=== PATIENT | female | born 2000 | race Caucasian/White ===

== ENCOUNTER 2020-09-07 12:25 | Day surgery (SDC) | payer BC ==
[2020-09-07] MEDS ORDERED: Ketorolac 30 MG/ML SDV IVPUSH ONE (13:11)
[2020-09-07] MEDS ORDERED: Sodium Chloride 0.9% 1,000 ML IV ONE (13:11)
[2020-09-07] MEDS ORDERED: Ondansetron 4 MG/2 ML SDV IVPUSH ONE (13:11)
[2020-09-07] MEDS ORDERED: cefTRIAXone 1 GM in Premix Bag 1 BAG IV ONE (13:12)
[2020-09-07 13:56] LABS: BLOOD UREA NITROGEN,BUN 12 mg/dL (7.0-18.0); CARBON DIOXIDE,CO2 23.6 mmol/L (21.0-32.0); CHLORIDE,CL 101 mmol/L (98-107); GLUCOSE RANDOM 96 mg/dL (74-106); LIPASE 37 U/L (73-393); POTASSIUM,K 3.4 mmol/L (3.5-5.1); SODIUM,NA 135 mmol/L (136-145)
--- NOTE | 2020-09-07 15:06 | CT ---
INDICATION: Right flank pain of 3 days duration. COMPARISON: None available. FINDINGS: Imaged lower chest unremarkable. - The unenhanced liver, gallbladder, pancreas, spleen, and adrenals are unremarkable. - Mild asymmetric right renal enlargement. Staghorn calculus measuring up to 2.1 cm at the right ureteropelvic junction (series 201, image 52). Mild-moderate dilatation of the right intrarenal collecting systems. Additional 0.5 cm calculus at the right ureterovesical junction (series 201, image 21) with mild upstream hydroureter. No left-sided urolithiasis or hydronephrosis. Urinary bladder is otherwise unremarkable. Anteverted uterus. Small right adnexal cystic lesion, likely physiologic. - The bowel appears normal in caliber and thickness diffusely. Candidate appendix appears normal. No free air. Trace pelvic free fluid. No lymphadenopathy. - Normal caliber abdominal aorta. No suspicious osseous lesion. IMPRESSION: 1. Staghorn 2.1 cm calculus at the right ureteropelvic junction with associated mild-moderate hydronephrosis. 2. Right ureterovesical junction 0.5 cm calculus with mild upstream hydroureter. Dictated by Flakito Blankenship MD @ 09/07/2020 3:03:41 PM Please note that all CT scans at this facility use dose modulation, iterative reconstruction, and/or weight-based dosing when appropriate to reduce radiation dose to as low as reasonably achievable. Dictated by: Flakito Blankenship MD @ 09/07/2020 15:03:50 (Electronically Signed)
[2020-09-07] MEDS ORDERED: Acetaminophen 1,000 MG in Premix Bag 1 BAG IV PRN (16:23)
[2020-09-07] MEDS ORDERED: fentaNYL 100 MCG/2 ML SDV IVPUSH PRN (16:23)
--- NOTE | 2020-09-07 16:23 | PCM.PREANE ---
Preanesthetic Assessment - Anesthesia/Transfusion/Family Hx Anesthesia History: No Prior Anesthesia Family History of Anesthesia Reaction: No - Physical Assessment NPO Status Date: 09/07/20 NPO Status Time: 00:05 Vital Signs: Last Vital Signs Temp 37.0 C 09/07/20 13:43 Pulse 108 H 09/07/20 13:43 Resp 17 09/07/20 13:43 BP 126/62 09/07/20 13:43 Pulse Ox 98 09/07/20 13:43 Height: 1.68 m Weight: 58.967 kg ASA Class: 1E - Lab Values: Laboratory Last Values WBC 14.08 K/uL (4.0-11.0) H 09/07/20 13:26 RBC 4.56 M/uL (4.30-5.90) 09/07/20 13:26 Hgb 13.7 g/dL (12.0-16.0) 09/07/20 13:26 Hct 41.0 % (36.0-46.0) 09/07/20 13:26 MCV 89.9 fL (80.0-98.0) 09/07/20 13:26 MCH 30.0 pg (27.0-32.0) 09/07/20 13:26 MCHC 33.4 g/dL (31.0-37.0) 09/07/20 13:26 RDW Std Deviation 43.9 fl (28.0-62.0) 09/07/20 13:26 RDW Coeff of Cricket 13 % (11.0-15.0) 09/07/20 13:26 Plt Count 215 K/uL (150-400) 09/07/20 13:26 MPV 10.00 fL (7.40-12.00) 09/07/20 13:26 Neut % (Auto) 77.9 % (48.0-80.0) 09/07/20 13:26 Lymph % (Auto) 10.0 % (16.0-40.0) L 09/07/20 13:26 [place] % (Auto) 11.9 % (0.0-15.0) 09/07/20 13:26 Eos % (Auto) 0.1 % (0.0-7.0) 09/07/20 13:26 Baso % (Auto) 0.1 % (0.0-1.5) 09/07/20 13:26 Neut # (Auto) 11.0 K/uL (1.4-5.7) H 09/07/20 13:26 Lymph # (Auto) 1.4 K/uL (0.6-2.4) 09/07/20 13:26 [place] # (Auto) 1.7 K/uL (0.0-0.8) H 09/07/20 13:26 Eos # (Auto) 0.0 K/uL (0.0-0.7) 09/07/20 13:26 Baso # (Auto) 0.0 K/uL (0.0-0.1) 09/07/20 13:26 Nucleated RBC % 0.0 /100WBC 09/07/20 13:26 Nucleated RBCs # 0 K/uL 09/07/20 13:26 Lactate 1.0 mmol/L (0.20-2.00) 09/07/20 14:16 Sodium 135 mmol/L (136-145) L 09/07/20 13:26 Potassium 3.4 mmol/L (3.5-5.1) L 09/07/20 13:26 Chloride 101 mmol/L (98-107) 09/07/20 13:26 Carbon Dioxide 23.6 mmol/L (21.0-32.0) 09/07/20 13:26 BUN 12 mg/dL (7.0-18.0) 09/07/20 13:26 Creatinine 1.1 mg/dL (0.6-1.0) H 09/07/20 13:26 Est Cr Clr Drug Dosing 76.57 mL/min 09/07/20 13:26 Estimated GFR (MDRD) > 60.0 ml/min 09/07/20 13:26 Glucose 96 mg/dL (74-106) 09/07/20 13:26 Calcium 9.2 mg/dL (8.5-10.1) 09/07/20 13:26 Total Bilirubin 2.5 mg/dL (0.2-1.0) H 09/07/20 13:26 AST 12 IU/L (15-37) L 09/07/20 13:26 ALT 22 IU/L (14-63) 09/07/20 13:26 Alkaline Phosphatase 40 U/L (46-116) L 09/07/20 13:26 Total Protein 7.8 g/dL (6.4-8.2) 09/07/20 13:26 Albumin 3.9 g/dL (3.4-5.0) 09/07/20 13:26 Globulin 3.9 g/dL (2.6-4.0) 09/07/20 13:26 Albumin/Globulin Ratio 1.0 (0.9-1.6) 09/07/20 13:26 Lipase 37 U/L (73-393) L 09/07/20 13:26 Urine Color YELLOW 09/07/20 12:38 Urine Appearance SLT CLOUDY 09/07/20 12:38 Urine pH 6.5 (5.0-8.0) 09/07/20 12:38 Ur Specific [place] 1.015 (1.001-1.035) 09/07/20 12:38 Urine Protein 100 mg/dL (NEGATIVE) H 09/07/20 12:38 Urine Glucose (UA) NEGATIVE mg/dL (NEGATIVE) 09/07/20 12:38 Urine Ketones TRACE mg/dL (NEGATIVE) H 09/07/20 12:38 Urine Occult Blood MODERATE (NEGATIVE) H 09/07/20 12:38 Urine Nitrite NEGATIVE (NEGATIVE) 09/07/20 12:38 Urine Bilirubin NEGATIVE (NEGATIVE) 09/07/20 12:38 Urine Urobilinogen 0.2 EU/dL (<2.0) 09/07/20 12:38 Ur Leukocyte Esterase LARGE (NEGATIVE) H 09/07/20 12:38 Urine RBC 6-10 (0-2/HPF) 09/07/20 12:38 Urine WBC 15-20 (0-5/HPF) 09/07/20 12:38 Ur Epithelial Cells FEW (NONE-FEW) 09/07/20 12:38 Amorphous Sediment LIGHT (NEGATIVE) 09/07/20 12:38 Urine Bacteria FEW (NEGATIVE) 09/07/20 12:38 Urine Mucus LIGHT (NONE-MOD) 09/07/20 12:38 Urine HCG, Qual NEGATIVE (NEGATIVE) 09/07/20 12:38 - Allergies Allergies/Adverse Reactions: Allergies Allergy/AdvReac Type Severity Reaction Status Date / Time No Known Allergies Allergy Verified 09/07/20 13:43 - Acknowledgements Anesthesia Type Planned: General Anesthesia Pt an Appropriate Candidate for the Planned Anesthesia: Yes Alternatives and Risks of Anesthesia Discussed w Pt/Guardian: Yes Pt/Guardian Understands and Agrees with Anesthesia Plan: Yes PreAnesthesia Questionnaire - Infectious Disease History Infectious Disease History: Reports: None - SUBSTANCE USE Tobacco Use Status *Q: Never Tobacco User - HOME MEDS Home Medications: Home Meds . [No Known Home Meds] 09/07/20 [History] - CURRENT (IN HOUSE) MEDS Current Meds: Current Medications Discontinued Medications Sodium Chloride (Normal Saline) 1,000 mls @ 999 mls/hr IV BOLUS ONE Stop: 09/07/20 14:11 Last Admin: 09/07/20 13:25 Dose: 999 mls/hr Documented by: Ceftriaxone Sodium/Dextrose 1 (gm/ Premix) 50 mls @ 100 mls/hr IV ONETIME ONE Stop: 09/07/20 13:41 Last Admin: 09/07/20 13:28 Dose: 100 mls/hr Documented by: Ketorolac Tromethamine (Toradol) 30 mg IVPUSH ONETIME ONE Stop: 09/07/20 13:12 Last Admin: 09/07/20 13:26 Dose: 30 mg Documented by: Ondansetron HCl (Zofran) 4 mg IVPUSH ONETIME ONE Stop: 09/07/20 13:12 Last Admin: 09/07/20 13:26 Dose: 4 mg Documented by:
[2020-09-07] MEDS ORDERED: Midazolam 1 MG/ML 2 ML SDV ONE ×2 (16:28→17:10)
[2020-09-07] MEDS ORDERED: fentaNYL 100 MCG/2 ML SDV ONE (16:28)
[2020-09-07] MEDS ORDERED: Propofol 200 MG/20 ML SDV ONE ×2 (16:28→17:20)
[2020-09-07] MEDS ORDERED: Ketorolac 30 MG/ML SDV ONE (16:30)
[2020-09-07] MEDS ORDERED: Ondansetron 4 MG/2 ML SDV ONE (16:30)
[2020-09-07] MEDS ORDERED: Lidocaine 2% 5 ML SDV ONE (16:30)
[2020-09-07] MEDS ORDERED: Glycopyrrolate 0.2 MG/ML SDV ONE (16:30)
[2020-09-07] MEDS ORDERED: Iopamidol 408 MG/ML 20 ML SDV ONE (16:52)
--- NOTE | 2020-09-07 17:58 | PCM.POSTAN ---
POST ANESTHESIA ASSESSMENT - MENTAL STATUS Mental Status: Alert - VITAL SIGNS Vital Signs: Last Vital Signs Temp 36.6 C 09/07/20 17:38 Pulse 82 09/07/20 17:53 Resp 15 09/07/20 17:53 BP 99/59 L 09/07/20 17:53 Pulse Ox 95 09/07/20 17:53 - RESPIRATORY Respiratory Status: Respiratory Rate WNL - CARDIOVASCULAR CV Status: Pulse Rate WNL - GASTROINTESTINAL GI Status: No Symptoms - POST OP HYDRATION Hydration Status: Adequate & Stable
--- NOTE | 2020-09-07 18:52 | CONS ---
DATE OF CONSULTATION: 09/07/2020 DATE OF : 2000 PRIMARY CARE PHYSICIAN: None PCP HISTORY OF PRESENT ILLNESS: 19-year-old presented to the emergency room with sudden onset of right flank pain, right lower quadrant pain. No history of urinary stones in the past. Her UA was suggestive of UTI. White blood count 14,000. She had a CT scan that showed an 8 mm right UVJ stone and a 2.5 cm right UPJ stone. No previous history of urinary stones. No previous surgery. No health problems. No recent or past one. PHYSICAL EXAMINATION: GENERAL: She is alert. She is oriented. She is stable. HEART: Normal sinus rhythm. LUNGS: Clear. ABDOMEN: Negative with the exception of right-sided mild abdominal tenderness. IMPRESSION: Right ureteral and ureteropelvic junction stones. PLAN: Cysto, double-J stent placement now plus antibiotics. ESWL and ureteroscopy with laser lithotripsy next week. ALAINA / ROSA /[id number]
--- NOTE | 2020-09-07 20:05 | OR ---
SURGEON: Colt Reinoso M.D. DATE OF PROCEDURE: 09/07/2020 PREOPERATIVE DIAGNOSES: Right ureteral stones, right ureteropelvic junction stone; 8 mm at the ureterovesical junction and 2.5 cm at the ureteropelvic junction; plus urinary tract infection. OPERATION: Cystoscopy, double-J stent placement. DESCRIPTION OF PROCEDURE: The patient was given general anesthesia. She was placed in the dorsal lithotomy position, prepped and draped in sterile drapes. Cystourethroscopy was done, showed the effect of acute bacterial cystitis that appeared moderate with clumps of what most likely is WBCs. A guidewire was attempted, would not go through where the stone is at, so a Glidewire was then inserted alongside the lower ureteral stone all the way up to the renal pelvis, over which a 26 cm 6- Welsh double-J stent was placed. Position was confirmed on fluoroscopy. The bladder was emptied, and the patient was moved to the recovery room in good condition. PLAN: I will see her this coming Wednesday in my office, and we most likely will arrange for her to have ureteroscopy with laser lithotripsy, and ESWL the same week. ALAINA / ROSA /[id number]
--- NOTE | 2020-09-08 07:23 | PCM48HPAN ---
Post Anesthesia Note - EVALUATION WITHIN 48HRS OF ANESTHETIC Vital Signs in Normal Range: Yes Patient Participated in Evaluation: Yes Respiratory Function Stable: Yes Airway Patent: Yes Cardiovascular Function Stable: Yes Hydration Status Stable: Yes Pain Control Satisfactory: Yes Nausea and Vomiting Control Satisfactory: Yes Mental Status Recovered: Yes Vital Signs: Last Vital Signs Temp 36.8 C 09/07/20 19:30 Pulse 85 09/07/20 19:30 Resp 18 09/07/20 19:30 BP 92/53 L 09/07/20 19:30 Pulse Ox 99 09/07/20 19:30
--- NOTE | 2020-09-10 13:43 | CR ---
INDICATION: Ureteral stent placement. TECHNIQUE: Retrograde pyelogram with stent placement. IMPRESSION: Fluoroscopy was provided for purposes of ureteral stent placement. Fluoroscopy time 8.2 seconds. One image was captured. Dictated by Vernon Barth MD @ Sep 10 2020 1:41PM Signed by Dr. Vernon Barth @ Sep 10 2020 1:42PM
== END 2020-09-07 20:00 | disposition home or self-care (01) ==
LOC: MW.ED 12:25 → MW.SDS 16:25 → MW.ICU 17:07 → MW.SDS 20:00
PROVIDERS: ATTEND Urology
DX: N20.2 Calculus of kidney with calculus of ureter (principal); N30.00 Acute cystitis without hematuria; B96.89 Other specified bacterial agents as the cause of diseases classified elsewhere; Z01.812 Encounter for preprocedural laboratory examination; Z20.822 Contact with and (suspected) exposure to COVID-19
CPT/HCPCS: 36415; 52332; 74176; 76000; 80053; 81001; 81025; 83605; 83690; 85025; 87040; 87086; 87635; C1769; C2617; J0696; J1885; J2001; J2250; J2405; J2704; J3010; J3490; J7030; 00910; Q9966; U0002